=== PATIENT | female | born 1960 | race American Indian/Alaskan Native ===

== ENCOUNTER 2024-08-22 19:05 | Emergency (ER) | payer OTHER ==
[~2024-08-22] VITALS: Ht 157.5 cm; Wt 72.6 kg
[2024-08-22] MEDS ORDERED: AMLODIPINE-OLM1 EAC2 (19:18)
[2024-08-22] MEDS ORDERED: FUROsemide 40 MG/4 ML VIAL IV ONE (19:45)
[2024-08-22] MEDS ORDERED: NITROGLYCERIN 250 ML IV SCH (19:45)
[2024-08-22 19:47] LABS: HEMOGLOBIN 14.2 g/dL (12.0-15.00); MEAN CELL VOLUME 92.9 fL (80.00-100.00); MEAN CORPUSCULAR HEMOGLOBIN 31.5 pg (27.00-32.0); MEAN CORPUSCULAR HGB CONC 33.9 g/dl (32.0-36.0); PLATELET COUNT 204 K/uL (150-450); RED BLOOD COUNT 4.52 M/uL (4.00-6.00)
[2024-08-22 20:00] VITALS: BP 178/87; O2SAT 100
[2024-08-22] MEDS ORDERED: NITROGLYCERIN IN 5 % DEXTROSE 250 ML IV SCH (20:00)
[2024-08-22 20:05] LABS: INR 0.95; PARTIAL THROMBOPLASTIN TIME 27.9 SECONDS (22.0-34.0); PROTHROMBIN TIME 10.4 SECONDS (9.0-11.5)
[2024-08-22 20:11] LABS: ALBUMIN 4.9 gm/dL (3.4-5.0); BILIRUBIN TOTAL 0.63 mg/dL (0.3-1.2); CREATININE SERUM 0.68 mg/dL (0.55-1.02); GFR 86.84; GLOBULINA 3.7 G/DL (2.4-3.5); POTASSIUM 3.59 mEq/L (3.5-5.1); TOTAL PROTEIN 8.6 gm/dL (6.4-8.2)
[2024-08-22 20:13] LABS: PH,URINE 7.5 (5.0-8.0); URINE APPEARANCE Cloudy; URINE BILIRRUBIN Negative (NEGATIVE); URINE BLOOD Trace; URINE COLOR Yellow; URINE GLUCOSE Negative (NEGATIVE); URINE KETONE Trace (NEGATIVE); URINE LEUKOCYTE Large; URINE NITRATE Negative; URINE PROTEIN Trace (NEGATIVE); URINE UROBILINOGEN 0.2 E.U./dl
[2024-08-22 20:17] LABS: URINE BACTERIA 545.5 uL (0.0-1933); URINE EPITHELIAL CELLS 101.8 uL (0.0-38.8); URINE RBC 23.9 uL (0.0-20.8); URINE WBC 506.1 uL (0.0-23.2)
[2024-08-22 20:20] LABS: URINE CAST 0.45 uL (0.0-1.40)
[2024-08-22] MEDS ORDERED: COZAAR100 MG PO (22:50)
== END 2024-08-22 23:03 | disposition home or self-care (01) ==
LOC: ER 19:07
PROVIDERS: General Practice
DX: I10 Essential (primary) hypertension (principal); R60.0 Localized edema; Z20.822 Contact with and (suspected) exposure to COVID-19